=== PATIENT | female | born 1960 | race Caucasian/White ===

== ENCOUNTER 2019-07-19 11:32 | Day surgery (SDC) | payer BC ==
[~2019-07-19] VITALS: Ht 167.6 cm; Wt 85.7 kg
[~2019-07-19 11:32] MED LIST: BIOT10009 PO; CO Q10CA PO; HM V4000 PO; METF500T13 PO; PRAV10TA3 PO; PROAAER10 INH
[2019-07-19] MEDS ORDERED: CETACAINE SPRAY 5GM As Ordered ONE (13:54)
[2019-07-19] MEDS ORDERED: LIDOCAINE 1% SDV INJ 30 ML VIAL As Ordered ONE (13:54)
[2019-07-19] MEDS ORDERED: LIDOCAINE VISCOUS 2% SOLN 15ML UDC As Ordered ONE (13:55)
[2019-07-19] MEDS ORDERED: dexameTHASONE 4 MG/ML 1ML VIAL (J1100) As Ordered ONE (13:59)
[2019-07-19] MEDS ORDERED: SUGAMMADEX SODIUM 500 MG/5 ML VIAL (BRIDION) As Ordered ONE (14:00)
[2019-07-19] MEDS ORDERED: LIDOCAINE 2% INJ 100 MG/5 ML SDV (FOR ANES.) As Ordered ONE (14:18)
[2019-07-19] MEDS ORDERED: ROCURONIUM BROMIDE 50 MG/5 ML VIAL As Ordered ONE (14:18)
[2019-07-19] MEDS ORDERED: ONDANSETRON 4MG/2ML VIAL (J2405) As Ordered ONE (14:18)
[2019-07-19] MEDS ORDERED: MIDAZOLAM INJ 2 MG/2 ML VIAL (J2250) As Ordered ONE (14:18)
[2019-07-19] MEDS ORDERED: fentaNYL 100 MCG/2 ML INJECTION (J3010) As Ordered ONE (14:18)
[2019-07-19] MEDS ORDERED: propofoL 200 MG/20 ML VIAL As Ordered ONE (14:18)
[2019-07-19] MEDS ORDERED: LABETALOL HCL 100 MG/20 ML VIAL As Ordered ONE (14:19)
[2019-07-19] MEDS ORDERED: ALBUTEROL 6.7GM INHALER **FOR ANES. CART/OMNICELL ONLY As Ordered ONE (14:38)
[2019-07-19] MEDS ORDERED: ALBUTEROL 90 MCG/ACT 8GM HFA INHALER INH PRN (14:45)
[2019-07-19] MEDS ORDERED: LR 1,000 ML IV SCH (15:15)
[2019-07-19] MEDS ORDERED: ONDANSETRON 4MG/2ML VIAL (J2405) IV PRN (15:15)
--- NOTE | 2019-07-19 15:53 | RO ---
DATE OF PROCEDURE: 07/19/2019 PREOPERATIVE DIAGNOSIS: Positive Quantiferon Gold, mediastinal lymphadenopathy. POSTOPERATIVE DIAGNOSIS: Positive Quantiferon Gold, mediastinal lymphadenopathy. SURGEON: Chapin Ponce MD ANESTHESIA: General. DESCRIPTION OF PROCEDURE: Procedure explained and consent obtained. [place] procedure was followed. Ms. Dubose was intubated by anesthesia. Following this a bronchoscope was introduced into the trachea. Both the left and right lungs were examined. There was normal anatomy and mucosa. No endobronchial lesions. Following this the bronchoscope was positioned into B6 of the right lung and a BAL was done. The bronchoscope was then positioned into the apical section of the left upper lobe and another BAL was done. Following this, the bronchoscope was withdrawn. Tolerated well. FINDINGS Normal anatomy and mucosa. No endobronchial lesions. SPECIMENS: 1. Right B6 BAL sent for AFB smear and culture, fungal smear and culture, and cytology. 2. Apical section left upper lobe BAL sent for AFB smear and culture, fungal smear and culture and cytology. 3. mTB PCR to be done on both specimens at the [facility]. [facility]
--- NOTE | 2019-07-19 16:34 | IPN ---
DATE: 07/19/2019 NOTE: Ms. Dubose was admitted under observation status following a bronchoscopy done under general anesthesia. She presented to the bronchoscopy without a ride. She lives in [facility], and even if we had opted to do moderate sedation, she would not have been allowed to drive home. It was felt safer for her to stay in the hospital on observation status. The bronchoscopy consisted a BAL of right B6 and apical section the left upper lobe. Tolerated well. ASSESSMENT AND PLAN: Observational admission following bronchoscopy with no ride available. Positive QuantiFERON Gold. CLL. Diabetes mellitus, type 2. RECOMMENDATIONS: 1. Will observe overnight in a negative pressure room. 2. Will continue her outpatient medications, which consists of an as-needed bronchodilator, metformin 500 mg by mouth twice a day, and Pravastatin. 3. Anticipate discharge in the morning. JOSE ANTONIO
[2019-07-19] MEDS ORDERED: metFORMIN (GLUCOPHAGE) 500 MG TAB PO SCH (21:00)
[2019-07-19 22:00] VITALS: BP 135/75
[2019-07-20 06:00] VITALS: BP 130/75
[2019-07-20] MEDS ORDERED: PRAVASTATIN 10 MG TAB PO SCH (21:00)
== END 2019-07-20 08:30 | disposition home or self-care (01) ==
LOC: M SDC 11:32 → M MSPAV 16:12
PROVIDERS: ADMIT Internal Medicine Pulmonary Disease; ATTEND Internal Medicine Pulmonary Disease
DX: R76.12 Nonspecific reaction to cell mediated immunity measurement of gamma interferon antigen response without active tuberculosis (principal); R91.8 Other nonspecific abnormal finding of lung field; E11.9 Type 2 diabetes mellitus without complications; J45.909 Unspecified asthma, uncomplicated; Z79.84 Long term (current) use of oral hypoglycemic drugs; Z88.0 Allergy status to penicillin; Z88.8 Allergy status to other drugs, medicaments and biological substances
CPT/HCPCS: 31624; 87102; 87116; 87206; 87556; J1100; J2250; J2405; J3010